=== PATIENT | male | born 1945 | race Caucasian/White ===

== ENCOUNTER 2018-09-09 11:28 | Observation (INO) | payer MEDICARE, BC ==
[2018-09-09 12:30] LABS: CHLORIDE,CL 104 mEq/L (98-106); SODIUM,NA 143 mEq/L (136-145)
[2018-09-09] MEDS ORDERED: Magnesium Sulfate (4.06 MEQ/ML) 1 GM/2 ML SDV IM ONE (15:12)
[2018-09-09] MEDS ORDERED: Potassium Chloride Riders 100 ML IV ONE (15:30)
[2018-09-09] MEDS ORDERED: CALCIUM GLUCONATE IV ONE (15:30)
[2018-09-09] MEDS ORDERED: SODIUM CHLORIDE 0.9% IV ONE (15:30)
[2018-09-09] MEDS ORDERED: Magnesium Chloride 64 MG Tab.ER PO SCH (18:00)
[2018-09-09 19:52] LABS: CHLORIDE,CL 106 mEq/L (98-106); SODIUM,NA 144 mEq/L (136-145)
[2018-09-09] MEDS ORDERED: Sodium Chloride 0.9% 10 ML Syringe FLUSH PRN (20:09)
[2018-09-09] MEDS ORDERED: Calcium Gluconate 10% 1 GM/10 ML SDV IVPUSH ONE (20:12)
[2018-09-09] MEDS ORDERED: Magnesium Sulfate/D5W 2 GM in Premix Bag 1 BAG IV ONE (20:17)
[2018-09-09] MEDS ORDERED: Sodium Chloride 0.9% 250 ML IV SCH (20:30)
[2018-09-09] MEDS ORDERED: Acetaminophen 325 MG Tab PO PRN (20:56)
[2018-09-09] MEDS ORDERED: Potassium Chloride Riders 40 MEQ in Premix Bag 1 BAG IV ONE (21:15)
[2018-09-10] MEDS: Calcium Carbonate 500 MG Tab.Chew PO PRN ×2 (00:28→07:41)
--- NOTE | 2018-09-10 03:34 | HP ---
Mr. Marshall is a 72-year-old, who presented to my office today with numbness and tingling in his hands and feet, possibly initially thought to be related to new medications or side-effects that he was given by Urology. He went and had routine lab work and was already at home when it came back with a magnesium level of 0.3 and a calcium level of 5.8, with a slightly low potassium at 2.9, and after much convincing, he was willing to come in and have some IV replacement. He got a gram of IV calcium, 40 mEq of KCl, and 2 g of magnesium sulfate IM. Followup lab work four hours later shows his level to still be low, and he was willing to be admitted to the hospital for IV replacement. We are going to get EKG stat on admit along with starting him on IV magnesium sulfate, another gram of calcium gluconate, and then we will piggyback on IV potassium. He is going to be started on oral calcium carbonate, Slow-Mag, and KCl as well. He will have followup lab work in the morning to follow up these electrolyte abnormalities. Please use the patient's clinic note as admit Steve. ELENA/MARKELL /[id number]
[2018-09-10] MEDS ORDERED: Magnesium Chloride 64 MG Tab.ER PO SCH (08:00)
[2018-09-10] MEDS ORDERED: Potassium Chloride 10 MEQ Tab.ER PO SCH (08:00)
[2018-09-10] MEDS ORDERED: Calcium Gluconate 10% 1 GM/10 ML SDV IVPUSH ONE (08:12)
[2018-09-10] MEDS ORDERED: Magnesium Sulfate/D5W 2 GM in Premix Bag 1 BAG IV ONE (08:12)
[2018-09-10] MEDS ORDERED: Calcium Gluconate 2 GM in Sodium Chloride 0.9% 100 ML IV ONE (08:30)
[2018-09-10 11:41] VITALS: BP 146/83
[2018-09-10] MEDS ORDERED: Calcium Carbonate 500 MG Tab.Chew PO SCH (12:00)
--- NOTE | 2018-09-10 21:48 | PCM.DCSUM1 ---
Discharge Summary - Hospital Course Free Text/Narrative:: Patient presented to clinic to see Dr. Black for numbness and tingling in his legs. Patient felt to be related to new meds given by urology. Labs were done and was found to have critically low magnesium at 0.3, calcium of 5.7, potassium of 2.9. Was given IM Mag Sulfate, IV calcium gluconate as outpatient with only minimal improvement. Magnesium improved to 0.7, calcium to 5.9. Was admitted for further IV replacement of both as well as potassium. Diagnosis: Stroke: No Modified [place] Scale: No Symptoms at All Modified [place] Scale Score: 0 - Discharge Data Discharge Date: 09/10/18 Discharge Disposition: Home, Self-Care 01 Condition: Good - Patient Summary/Data Complications: none Hospital Course: Patient is feeling good this am. States numbness and tingling in legs has resolved. Is ambulating without difficulty. Blood pressure, pulse remain normal. Labs this am show calcium yet of 5.9, potassium of 3.1, magnesium of 1.2. Given additional dose of magnesium sulfate 2 gm and 2 gm of calcium gluconate. Labs rechecked. Calcium up to 7.1, magnesium 1.7. Will discharge home. Stop Omeprazole due to potential cause of electrolyte abnormalities. Start Zantac 150 mg BID. Continue potassium 20 meq BID. TUMS 6 tabs daily. Slo Mag BID. Recheck labs on Saturday. Follow up with Dr. Black on Saturday. - Patient Instructions Diet: Usual Diet as Tolerated Activity: As Tolerated - Discharge Plan *PRESCRIPTION DRUG MONITORING PROGRAM REVIEWED*: No *COPY OF PRESCRIPTION DRUG MONITORING REPORT IN PATIENT NAWAF: No Prescriptions/Med Rec: Calcium Carbonate [Tums] 400 mg PO TID #180 tab.chew Magnesium Chloride [Mag-64] 64 mg PO BIDMEALS #60 tab.er Potassium Chloride [Klor-Con 10] 20 meq PO BIDMEALS #60 tab.er Ranitidine HCl [Zantac] 150 mg PO BID #60 tablet Home Medications: Home Meds Aspirin [Ecotrin] 81 mg PO DAILY 10/20/14 [History] Cholecalciferol (Vitamin D3) [Vitamin D3] 1,000 units PO DAILY 10/20/14 [History ] Simvastatin 40 mg PO DAILY 10/20/14 [History] Tamsulosin HCl 1 - 2 cap PO DAILY 10/20/14 [History] Budesonide [Entocort EC] 9 mg PO ASDIRECTED 09/09/18 [History] Finasteride 5 mg PO DAILY 09/09/18 [History] Losartan Potassium [Cozaar] 50 mg PO DAILY 09/09/18 [History] Metoprolol Succinate 50 mg PO DAILY 09/09/18 [History] amLODIPine Besylate [Amlodipine Besylate] 5 mg PO DAILY 09/09/18 [History] Calcium Carbonate [Tums] 400 mg PO TID #180 tab.chew 09/10/18 [Rx] Magnesium Chloride [Mag-64] 64 mg PO BIDMEALS #60 tab.er 09/10/18 [Rx] Potassium Chloride [Klor-Con 10] 20 meq PO BIDMEALS #60 tab.er 09/10/18 [Rx] Ranitidine HCl [Zantac] 150 mg PO BID #60 tablet 09/10/18 [Rx] Referrals: Edgar Black MD [Primary Care Provider] - (Hospital follow up on Saturday with Dr. Black. Needs to come Saturday for labs) - Discharge Summary/Plan Comment DC Time >30 min.: No - General Info Date of Service: 09/10/18 Admission Dx/Problem (Free Text: Hypomagnesemia Hypocalcemia Functional Status: Reports: Pain Controlled, Tolerating Diet, Ambulating - Review of Systems General: Denies: Fever, Weakness, Fatigue, Malaise HEENT: Reports: No Symptoms Pulmonary: Denies: Shortness of Breath, Cough Cardiovascular: Denies: Chest Pain, Edema, Lightheadedness Gastrointestinal: Denies: Abdominal Pain, Nausea, Vomiting Genitourinary: Reports: No Symptoms Musculoskeletal: Reports: No Symptoms Skin: Reports: No Symptoms Neurological: Denies: Numbness, Tingling - Patient Data Vitals - Most Recent: Last Vital Signs Temp 98.4 F 09/10/18 11:40 Pulse 64 09/10/18 11:40 Resp 20 09/10/18 11:40 BP 146/83 H 09/10/18 11:40 Pulse Ox 95 09/10/18 11:40 Weight - Most Recent: 197 lb 14.4 oz Lab Results - Last 24 hrs: Laboratory Results - last 24 hr 09/10/18 09/10/18 Range/Units 07:00 12:34 Sodium 145 145 (136-145) mEq/L Potassium 3.3 L 3.7 (3.5-5.0) mEq/L Chloride 109 H 107 H (98-106) mEq/L Carbon Dioxide 29 30 (21-32) mmol/L BUN 16 17 (7-18) mg/dL Creatinine 1.3 1.3 (0.7-1.3) mg/dL Est Cr Clr Drug Dosing 52.29 52.29 mL/min Estimated GFR (MDRD) 54 L 54 L (>=60) mL/min Glucose 91 D 101 H (75-99) mg/dL Calcium 5.9 L* 7.1 L (8.4-10.1) mg/dL Magnesium 1.2 L 1.7 L (1.8-2.4) mg/dL Med Orders - Current: Current Medications Discontinued Medications Acetaminophen (Tylenol) 650 mg PO Q4H PRN PRN Reason: Pain/Fever Last Admin: 09/09/18 21:09 Dose: 650 mg Calcium Carbonate/Glycine (Tums) 500 mg PO QID PRN PRN Reason: Dyspepsia Last Admin: 09/10/18 07:41 Dose: 500 mg Calcium Carbonate/Glycine (Tums) 500 mg PO QID [facility] Last Admin: 09/10/18 12:08 Dose: 500 mg Calcium Gluconate (Calcium Gluconate) 1 gm IVPUSH ONETIME ONE Stop: 09/09/18 20:13 Last Admin: 09/09/18 21:07 Dose: 1 gm Calcium Gluconate 1 gm/ Sodium (Chloride) 1,010 mls @ 252.5 mls/hr IV ONETIME ONE Stop: 09/09/18 19:29 Last Admin: 09/09/18 15:41 Dose: 252.5 mls/hr Potassium Chloride (Kcl 40 Meq In Water 100 Ml) 100 mls @ 25 mls/hr IV ONETIME ONE Stop: 09/09/18 19:29 Last Admin: 09/09/18 15:41 Dose: 25 mls/hr Magnesium Sulfate/Dextrose 2 (gm/ Premix) 200 mls @ 100 mls/hr IV ONETIME ONE Stop: 09/09/18 22:16 Last Admin: 09/09/18 21:08 Dose: 100 mls/hr Potassium Chloride 40 meq/ (Premix) 100 mls @ 25 mls/hr IV ONETIME ONE Stop: 09/10/18 01:14 Last Admin: 09/09/18 23:36 Dose: 25 mls/hr Sodium Chloride (Normal Saline) 250 mls @ 60 mls/hr IV ASDIRECTED [facility] Last Admin: 09/09/18 21:17 Dose: 60 mls/hr Magnesium Sulfate/Dextrose (Magnesium 1 Gm In D5w 100 Ml) Confirm Administered Dose 100 mls @ as directed .ROUTE .STK-MED ONE Stop: 09/09/18 21:17 Last Admin: 09/09/18 21:12 Dose: Not Given Magnesium Sulfate/Dextrose 2 (gm/ Premix) 200 mls @ 100 mls/hr IV ONETIME ONE Stop: 09/10/18 10:11 Last Admin: 09/10/18 08:51 Dose: 100 mls/hr Calcium Gluconate 2 gm/ Sodium (Chloride) 120 mls @ 120 mls/hr IV ONETIME ONE Stop: 09/10/18 09:29 Last Admin: 09/10/18 11:28 Dose: 120 mls/hr Magnesium Chloride (Mag-64) 64 mg PO DAILY [facility] Last Admin: 09/09/18 18:10 Dose: 64 mg Magnesium Chloride (Mag-64) 64 mg PO BIDMEALS [facility] Last Admin: 09/10/18 07:42 Dose: 64 mg Magnesium Sulfate (Magnesium Sulfate 50%) 2 gm IM ONETIME ONE Stop: 09/09/18 15:13 Last Admin: 09/09/18 15:46 Dose: 2 gm Potassium Chloride (Klor-Con 10) 20 meq PO BIDMEALS [facility] Last Admin: 09/10/18 07:42 Dose: 20 meq Sodium Chloride (Saline Flush) 10 ml FLUSH ASDIRECTED PRN PRN Reason: Keep Vein Open - Exam General: Reports: Alert, Oriented HEENT: Reports: Mucous Membr. Moist/[place]ck: Reports: Supple Lungs: Reports: Clear to Auscultation, Normal Respiratory Effort Cardiovascular: Reports: Regular Rate, Regular Rhythm GI/Abdominal Exam: Normal Bowel Sounds, Soft, Non-Tender Extremities: Normal Inspection, No Pedal Edema Skin: Reports: Warm, Dry Neurological: Reports: No New Focal Deficit
== END 2018-09-10 14:00 | disposition home or self-care (01) ==
LOC: CC.ACU 11:28 → CC.FCMC 11:28 → CC.MS 20:09 → UNDOADMOB 20:32
PROVIDERS: ADMIT Family Medicine; ATTEND Family Medicine
DX: E83.42 Hypomagnesemia (principal); E83.51 Hypocalcemia; R20.0 Anesthesia of skin
CPT/HCPCS: 36415; 80048; 80053; 82607; 82746; 83735; 84443; 85025; 85651; 93005; 93010; 96361; 96365; 96366; 96367; 96372; 96376; 99217; 99219; A9270-GY; G0378; J0610; J3475; J3480; J7030; J7050

== ENCOUNTER → 2020-11-03 | Day surgery (SDC) | payer MEDICARE, BC ==
[~2020-11-03] MED LIST: Ketamine 200 MG/20 ML MDV ONE; Lidocaine 2% 5 ML SDV ONE; Propofol 200 MG/20 ML SDV ONE; fentaNYL 100 MCG/2 ML SDV ONE
[2020-11-03] MEDS: Lactated Ringers 1,000 ML IV SCH (09:23)
[2020-11-03 12:27] VITALS: BP 119/64; PULSE 50
--- NOTE | 2020-11-03 17:00 | OR ---
DATE OF OPERATION: 11/03/2020 PREOPERATIVE DIAGNOSIS: DYSPHAGIA. POSTOPERATIVE DIAGNOSIS: DYSPHAGIA. SURGEON: Juan Gorman MD PROCEDURE: ESOPHAGOGASTRODUODENOSCOPY WITH BIOPSY OF ESOPHAGOGASTRIC JUNCTION ABNORMALITY. ANESTHESIA: MAC. SPECIMEN: Distal esophageal biopsy. INDICATIONS: This 74-year-old male has had increasing dysphagia over the last several months. He does not have significant heartburn. He is on proton pump inhibitor. 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 DESCRIPTION OF PROCEDURE: After adequate preparation, a gastroscope was inserted into the esophagus. This was passed down to the distal esophagus where there was some narrowing. The lumen of the esophagus is approximately a third encroached on by a mass off to the side of the esophagus. This does not extend very long, probably only in the range of a cm to 2 at the most. It is not circumferential. Appearance of this is indicative of tumor. The scope was advanced through the opening and into the stomach and the rest of the examination of the stomach was normal as was the duodenum. Retroflexion of the scope in the stomach did show an abnormality around the opening of the esophagus that the scope was coming through. I did several biopsies in the area on the gastric side, suctioned air from the stomach and withdrew the scope back into the esophagus. There were several biopsies taken of the mass from the esophageal side. The scope was then removed and the patient taken to recovery room. DESTINEE/MARKELL /[id number]
== END ==
LOC: CC.SDS 08:22
PROVIDERS: ATTEND Surgery
DX: C16.0 Malignant neoplasm of cardia (principal); N40.1 Benign prostatic hyperplasia with lower urinary tract symptoms; J44.9 Chronic obstructive pulmonary disease, unspecified; I10 Essential (primary) hypertension; E78.5 Hyperlipidemia, unspecified; M48.061 Spinal stenosis, lumbar region without neurogenic claudication; K52.831 Collagenous colitis; Z79.899 Other long term (current) drug therapy; Z79.82 Long term (current) use of aspirin; Z90.49 Acquired absence of other specified parts of digestive tract; Z87.891 Personal history of nicotine dependence; I71.4 Abdominal aortic aneurysm, without rupture
CPT/HCPCS: 00731; 43239; 76775; 88305; 88360; 99100; J2704; J3010; J7120